=== PATIENT | female | born 1960 | race Caucasian/White ===

== ENCOUNTER → 2017-02-23 | Outpatient (CLI) | payer OTHER ==
--- NOTE | 2017-02-23 14:18 | RADRPT ---
Echocardiogram Report Patient Name: CHELSEA LYONS Gender: Female Date: 1960 Study Date: 23-Feb-2017 Care Transitions Nurse: Sergey Adam RDCS Location: EKG Ref. Physician: RYAN JACOBS Quality: Adequate Procedures: Transthoracic echocardiogram with complete 2D, M-Mode, and doppler examination. Indications: Aortic Valve Disorder. 2D/M Mode Doppler Measurement Value Normal Ranges Measurement Value Normal Ranges LVIDd 2D 5.2 3.5 - 5.6 cm AV Peak Robin 1.7 m/sec LVIDs 2D 2.9 2.1 - 4.1 cm AV Peak PG 12.0 mmHg FS 2D 44.6 % LVOT Peak Robin 1.0 m/sec LVPWd 2D 1.0 0.6 - 1.1 cm LVOT Peak PG 4.0 mmHg IVSd 2D 1.0 0.6 - 1.1 cm MV E Peak Robin 1.1 m/sec IVS/LVPW 2D 1.1 MV Decel Time 137 msec AoR Diam 2D 3.1 2.0 - 3.7 cm TR Peak Robin 3.1 m/sec LA/Ao 2D 1 0 - 1 TR Peak PG 38.0 mmHg EDV 2D 142.0 cm3 RVSP 41.0 mmHg ESV 2D 24.1 cm3 LA Dimen 2D 4.1 2.3 - 4.0 cm Findings Left Ventricle: Lower limits of normal systolic function. Normal left ventricular wall thickness. Mild global left ventricular systolic dysfunction. Ejection fraction is visually estimated at 50 %. Abnormal Diastolic Function. Right Ventricle: Normal right ventricular size. Normal right ventricular systolic function. Left Atrium: The left atrium is normal in size. Right Atrium: The right atrium is normal in size. Mitral Valve: Mitral valve leaflets appear mildly thickened. Mild mitral annular calcification. Mild mitral valve regurgitation. Aortic Valve: No hemodynamically significant aortic stenosis by doppler. Left coronary cusp appears moderately calcified. Trace aortic valve regurgitation. Tricuspid Valve: Normal appearance of the tricuspid valve. Estimated peak PA systolic pressure 41 mmHg. There is mild tricuspid regurgitation. Pulmonic Valve: Pulmonic valve not well visualized. Pericardium: Normal pericardium with no significant pericardial effusion. Aorta: Normal aortic root. IVC: Normal size and normal respiratory collapse consistent with normal right atrial pressure. Conclusions 1.Lower limits of normal systolic function. Normal left ventricular wall thickness. Mild global left ventricular systolic dysfunction. Ejection fraction is visually estimated at 50 %. Abnormal Diastolic Function. 2.Mitral valve leaflets appear mildly thickened. Mild mitral annular calcification. Mild mitral valve regurgitation. 3.No hemodynamically significant aortic stenosis by doppler. Left coronary cusp appears moderately calcified. Trace aortic valve regurgitation. 4.Normal appearance of the tricuspid valve. Estimated peak PA systolic pressure 41 mmHg. There is mild tricuspid regurgitation. 5.Given hyperechoic structure on L coronary cusp leaflet cannot completely rule out vegetation. Clinical correlation necessary. Consider DOMONIQUE as necessary. Electronically Signed By: Connor Mccrary 23-Feb-2017 14:18:14 -0700 Patient Name: CHELSEA LYONS Study Date: 23-Feb-2017 [id number]
== END | disposition home or self-care (01) ==
LOC: EKG 12:16
PROVIDERS: ATTEND Internal Medicine
DX: I35.8 Other nonrheumatic aortic valve disorders (principal)
CPT/HCPCS: 93306